=== PATIENT | male | born 1970 | race Two or more races ===

== ENCOUNTER 2021-08-08 13:39 | Emergency (ER) | payer OTHER ==
[~2021-08-08] VITALS: Ht 177.8 cm; Wt 280.0 kg
[2021-08-08 13:55] VITALS: BP 187/108
[2021-08-08] MEDS ORDERED: ketorolac trometh inj. 60 MG/2 ML VIAL IM ONE (14:30)
== END 2021-08-08 15:22 | disposition home or self-care (01) ==
LOC: ER 13:40
DX: M54.50 Low back pain, unspecified (principal); R51.9 Headache, unspecified; R20.0 Anesthesia of skin; R10.9 Unspecified abdominal pain; V89.2XXA Person injured in unspecified motor-vehicle accident, traffic, initial encounter; Y93.89 Activity, other specified; Y92.89 Other specified places as the place of occurrence of the external cause; Y99.8 Other external cause status
CPT/HCPCS: 72100; 96372; 99283; J1885